=== PATIENT | male | born 1990 | race African-American/Black ===

== ENCOUNTER 2020-04-13 00:17 | Emergency (ER) | payer SELFPAY ==
[~2020-04-13] VITALS: Ht 188 cm; Wt 66.2 kg
[2020-04-13 00:31] VITALS: Ht 188 cm; Wt 66.2 kg
[2020-04-13 01:49] VITALS: BP 127/78
== END 2020-04-13 01:49 | disposition home or self-care (01) ==
LOC: ED 00:17
DX: N45.1 Epididymitis (principal)
CPT/HCPCS: 87491; 87591; J0696

== ENCOUNTER 2020-04-21 23:39 | Emergency (ER) | payer MEDICAID ==
[~2020-04-21] VITALS: Ht 188 cm; Wt 66.2 kg
[2020-04-22 00:03] VITALS: Ht 188 cm; Wt 66.2 kg
[2020-04-22 02:15] LABS: microscopic required? NO
[2020-04-22 02:46] LABS: urine erythrocyte NEGATIVE (NEGATIVE)
[2020-04-22 04:09] VITALS: BP 120/70
== END 2020-04-22 04:09 | disposition home or self-care (01) ==
LOC: ED 23:39
PROVIDERS: Emergency Medicine
DX: N50.812 Left testicular pain (principal)